=== PATIENT | male | born 1930 | race Caucasian/White ===

== ENCOUNTER 2019-01-25 06:51 | Outpatient (CLI) | payer MEDICARE, OTHER | END 2019-01-25 23:59 | disposition home or self-care (01) | LOC: RAD 06:51 | PROVIDERS: ATTEND Family Medicine | DX: R19.5 Other fecal abnormalities (principal); K57.30 Diverticulosis of large intestine without perforation or abscess without bleeding; M47.816 Spondylosis without myelopathy or radiculopathy, lumbar region | CPT/HCPCS: 74270 ==